=== PATIENT | male | born 1985 | race Hispanic/Latino ===

== ENCOUNTER 2022-05-06 12:35 | Emergency (ER) | payer OTHER ==
[2022-05-06] MEDS ORDERED: Ketorolac Tromethamine 30 MG/ML VIAL ONE (13:31)
[2022-05-06] MEDS ORDERED: Orphenadrine Citrate 60 MG/2 ML VIAL IM SCH (13:45)
== END 2022-05-06 14:06 | disposition home or self-care (01) ==
LOC: CSHERS 12:35
DX: M25.511 Pain in right shoulder (principal); F17.200 Nicotine dependence, unspecified, uncomplicated
CPT/HCPCS: 93005; 96372; J1885; J2360